=== PATIENT | male | born 1960 | race Caucasian/White ===

== ENCOUNTER 2024-06-08 16:07 | Emergency (ER) | payer MEDICAID, OTHER ==
[2024-06-08 18:09] LABS: BASOPHILS ABSOLUTE AUTO 0.1 K/mm3 (0.0-0.2); BASOPHILS PERCENT AUTO 0.8 % (0.0-1.0); EOSINOPHILS ABSOLUTE AUTO 0.4 K/mm3 (0.0-0.4); EOSINOPHILS PERCENT AUTO 3.6 % (0.0-6.0); HEMATOCRIT 51.9 % (42.0-52.0); IMMATURE GRAN ABSOLUTE AUTO 0.04 K/mm3 (0.00-0.05); IMMATURE GRAN PERCENT AUTO 0.4 % (0.0-0.4); LYMPHOCYTES ABSOLUTE AUTO 2.2 K/mm3 (1.0-4.8); LYMPHOCYTES PERCENT AUTO 23.1 % (24.0-44.0); MEAN CORPUSCULAR HGB CONC 30.8 g/dl (32.0-36.0); MEAN CORPUSCULAR VOLUME 90.9 fl (83.0-99.0); MEAN PLATELET VOLUME 12.2 fl (9.4-12.4); MONOCYTES ABSOLUTE AUTO 0.9 K/mm3 (0.0-0.8); NEUTROPHILS ABSOLUTE AUTO 6.1 K/mm3 (1.8-7.7); NEUTROPHILS PERCENT AUTO 63.1 % (41.0-71.0); PLATELET COUNT,PLT 240 K/mm3 (150-400); RED BLOOD CELL COUNT 5.71 M/mm3 (4.52-5.90); WHITE BLOOD CELL COUNT,WBC 9.68 K/mm3 (3.9-11.3)
[2024-06-08 18:37] LABS: A/G RATIO 0.7 (1-2); ALANINE AMINOTRANSFERASE,ALT 55 U/L (16-63); ALBUMIN 3.5 g/dl (3.4-5.0); ALKALINE PHOSPHATASE 96 U/L (46-116); ANION GAP 12.2 (5-15); ASPARTATE AMNIOTRANSFERASE,AST 45 U/L (15-37); BILIRUBIN TOTAL 0.4 mg/dL (0.2-1.0); BLOOD UREA NITROGEN,BUN 7 mg/dL (7-18); BUN/CREATININE RATIO 8.8 (14-18); CARBON DIOXIDE,CO2 30 mEq/L (21-32); CHLORIDE,CL 105 mEq/L (98-107); CREATININE 0.8 mg/dL (0.7-1.3); ESTIMATED GFR 101 mL/min (>60); GLUCOSE RANDOM 111 mg/dL (70-99); MAGNESIUM 1.9 mg/dL (1.8-2.4); POTASSIUM,K 4.2 mEq/L (3.5-5.1); PROTEIN TOTAL,TP 8.3 g/dl (6.4-8.2); SODIUM,NA 143 mEq/L (136-145)
[2024-06-08 18:58] LABS: TROPONIN I HIGH SENSITIVITY < 4 pg/mL (<=76)
== END 2024-06-08 19:56 | disposition home or self-care (01) ==
LOC: JD.ED 16:07
DX: K59.00 Constipation, unspecified (principal); M79.674 Pain in right toe(s); Z88.8 Allergy status to other drugs, medicaments and biological substances
CPT/HCPCS: 36415; 71045; 71045-26; 73630-26-RT; 73630-RT; 74018; 74018-26; 80053; 83735; 83880; 84484; 85025; 93005; 99285

== ENCOUNTER 2024-08-20 17:05 | Emergency (ER) | payer OTHER ==
[2024-08-20 19:05] LABS: BASOPHILS ABSOLUTE AUTO 0.1 K/mm3 (0.0-0.2); BASOPHILS PERCENT AUTO 0.6 % (0.0-1.0); EOSINOPHILS ABSOLUTE AUTO 0.4 K/mm3 (0.0-0.4); EOSINOPHILS PERCENT AUTO 3.8 % (0.0-6.0); IMMATURE GRAN ABSOLUTE AUTO 0.05 K/mm3 (0.00-0.05); IMMATURE GRAN PERCENT AUTO 0.5 % (0.0-0.4); LYMPHOCYTES ABSOLUTE AUTO 1.8 K/mm3 (1.0-4.8); LYMPHOCYTES PERCENT AUTO 17.2 % (24.0-44.0); MEAN PLATELET VOLUME 10.0 fl (9.4-12.4); MONOCYTES ABSOLUTE AUTO 0.9 K/mm3 (0.0-0.8); MONOCYTES PERCENT AUTO 8.4 % (0.0-8.0); NEUTROPHILS ABSOLUTE AUTO 7.3 K/mm3 (1.8-7.7); NEUTROPHILS PERCENT AUTO 69.5 % (41.0-71.0); NRBC ABSOLUTE 0.00 (0.00-0.02); NRBC PERCENT 0.0 % (0.0-0.2); PLATELET COUNT,PLT 372 K/mm3 (150-400); RED BLOOD CELL COUNT 4.53 M/mm3 (4.52-5.90); WHITE BLOOD CELL COUNT,WBC 10.53 K/mm3 (3.9-11.3)
[2024-08-20 19:06] LABS: APPEARANCE,URINE TURBID (Clear); GLUCOSE,URINE NEGATIVE (Negative); OCCULT BLOOD,URINE 3+ (Negative)
[2024-08-20 19:20] LABS: A/G RATIO 0.6 (1-2); ALANINE AMINOTRANSFERASE,ALT 36 U/L (16-63); ASPARTATE AMNIOTRANSFERASE,AST 28 U/L (15-37); BILIRUBIN TOTAL 0.3 mg/dL (0.2-1.0); BLOOD UREA NITROGEN,BUN 14 mg/dL (7-18); CARBON DIOXIDE,CO2 28 mEq/L (21-32); CHLORIDE,CL 104 mEq/L (98-107); CREATININE 1.0 mg/dL (0.7-1.3); ESTIMATED GFR 86 mL/min (>60); GLUCOSE RANDOM 130 mg/dL (70-99); POTASSIUM,K 3.3 mEq/L (3.5-5.1); PROTEIN TOTAL,TP 7.3 g/dl (6.4-8.2); SODIUM,NA 138 mEq/L (136-145)
[2024-08-20 19:26] LABS: SQUAMOUS EPITHELIAL CELLS,UR 0-5 /hpf (0-5)
[2024-08-20] MEDS: cefTRIAXone 2 GM, Lidocaine 1% 4.2 ML IM ONE (20:12)
== END 2024-08-20 21:42 | disposition home or self-care (01) ==
LOC: JD.ED 17:05
DX: T83.511A Infection and inflammatory reaction due to indwelling urethral catheter, initial encounter (principal); L97.419 Non-pressure chronic ulcer of right heel and midfoot with unspecified severity; L89.302 Pressure ulcer of unspecified buttock, stage 2; G82.20 Paraplegia, unspecified; Z88.8 Allergy status to other drugs, medicaments and biological substances
CPT/HCPCS: 36415; 80053; 81001; 85025; 86140; 87086; 87088; 87186; 96372; 99283; A9270; C1758; J0696; J2003